=== PATIENT | male | born 1950 | race Caucasian/White ===

== ENCOUNTER 2016-09-16 08:16 | Day surgery (SDC) | payer OTHER, MEDICARE ==
[2016-09-15 14:34] VITALS: BMI 29.9
[2016-09-16 08:32] LABS: URINE APPEARANCE CLEAR; URINE BILIRUBIN NEGATIVE (NEGATIVE); URINE BLOOD NEGATIVE (NEGATIVE); URINE COLOR DKYELLOW; URINE GLUCOSE (UA) NEGATIVE (NEGATIVE); URINE KETONE NEGATIVE (NEGATIVE); URINE LEUK ESTERASE NEGATIVE (NEGATIVE); URINE NITRITE NEGATIVE (NEGATIVE); URINE PROTEIN NEGATIVE (NEGATIVE); URINE UROBILINOGEN NEGATIVE E.U./dl (0.2-1.0)
[2016-09-16 09:10] LABS: INR 1.19 (0.82-1.09); PROTHROMBIN TIME (PATIENT) 13.1 SEC (9.98-11.88)
[2016-09-16 09:13] LABS: ACTIVATED PTT 31.9 SECONDS (26.9-34.4)
[2016-09-16] MEDS ORDERED: ROPIVACAINE HCL 0.5% 30ML VIAL ONE (09:39)
[2016-09-16] MEDS ORDERED: MIDAZOLAM HCL 2 MG/2 ML SINGLE DOSE VIAL ONE ×3 (09:40→11:33)
--- NOTE | 2016-09-16 11:30 | HP ---
Satellite [facility] - Chief Complaint Chief Complaint: right shoulder pain - Past Medical History Allergies/Adverse Reactions: Allergies Allergy/AdvReac Type Severity Reaction Status Date / Time No Known Allergies Allergy Verified 09/16/16 09:05 - Current Medications Current Medications: Medication Instructions Recorded Digoxin [Lanoxin -] 0.125 mg PO DAILY 01/16/12 Warfarin Na [Coumadin -] 5 mg PO HS 01/16/12 Rosuvastatin Calcium [Crestor] 10 mg PO DAILY 08/23/12 Diltiazem HCl [Diltiazem 24Hr Cd] 180 mg PO HS 03/03/16 Apixaban [Eliquis] 5 mg PO BID 09/15/16 Hydrocodone/Acetaminophen 1 each PO Q6H #40 tablet MDD 4 09/16/16 [Hydrocodon-Acetaminoph 7.5-325] Satellite Physical Exam - Physical Examination Vital Signs: Vital Signs Period Temp Pulse Resp BP Sys/Palomares Pulse Ox Last 24 Hr 93 18 123/95 96 General Appearance: Well Nourished, Well Developed, Alert & Oriented x3 ENT: Clear Lung: Normal air movement Heart: Regular rate & rhythm Extremities: Other (right shoulder- +ttp, decr rom, + neer, + valdez, + empty can, nvi MRI + rct) Neurological: Intact, Alert, Oriented Satellite Impression/Plan - Impression/Plan Impression: right shoulder rct Operative Procedure: right shoulder arthroscopy with [id number] Date to be Performed: 09/16/16
[2016-09-16] MEDS ORDERED: ceFAZolin SODIUM 1 GM VIAL ONE (11:32)
[2016-09-16] MEDS ORDERED: ONDANSETRON 4 MG/2 ML VIAL ONE (11:32)
[2016-09-16] MEDS ORDERED: DEXAMETHASONE SOD PHOSPHATE 4 MG/1 ML VIAL ONE (11:32)
[2016-09-16] MEDS ORDERED: SODIUM CHLORIDE 0.9% P/F 10 ML VIAL IJ ONE (11:32)
[2016-09-16] MEDS ORDERED: KETOROLAC TROMETHAMINE 30 MG/1 ML VIAL ONE (11:32)
[2016-09-16] MEDS ORDERED: SUCCINYLCHOLINE CHLORIDE 200 MG/10 ML VIAL ONE (11:33)
[2016-09-16] MEDS ORDERED: ROCURONIUM BROMIDE 50 MG/5 ML VIAL ONE (11:33)
[2016-09-16] MEDS ORDERED: PROPOFOL 20 ML ONE (11:33)
[2016-09-16] MEDS ORDERED: ceFAZolin SODIUM 1 GM VIAL IVPB ONE ×2 (11:41→11:46)
--- NOTE | 2016-09-16 13:05 | OP ---
Operative Note - Note: Operative Date: 09/16/16 Pre-Operative Diagnosis: right shoulder RTC tear and subacromial impingement Operation: right shoulder arthroscopy, decompression, extensive debridement, RTC repair Implants: 2 x Arthrex Swivel lock anchors, fiber wire, fiber tape Surgeon: Luís Buchanan Support Team Member: Nishant Ramirez Anesthesiologist/PRODUCTION QUALITY MANAGER: Mark Holman Jr. Anesthesia: General, Local Estimated Blood Loss (mls): 25 Blood Volume Replaced (mls): 0 Fluid Volume Replaced (mls): 1,000 Operative Report Dictated: Yes
[2016-09-16] MEDS ORDERED: oxyCODONE HCL 5 MG TABLET PO PRN (14:07)
[2016-09-16] MEDS ORDERED: ONDANSETRON 4 MG/2 ML VIAL IVPUSH PRN (14:07)
[2016-09-16] MEDS ORDERED: LACTATED RINGERS SOLUTION 1,000 ML IV SCH (14:15)
--- NOTE | 2016-09-16 14:50 | OP ---
DATE OF OPERATION: 09/16/2016 PREOPERATIVE DIAGNOSES: Right shoulder subacromial impingement and rotator cuff tear. POSTOPERATIVE DIAGNOSES: Right shoulder subacromial impingement and rotator cuff tear. PROCEDURE: Right shoulder arthroscopy, subacromial decompression, and arthroscopic rotator cuff repair, extensive debridement. SURGEON: Sincere Shelton MD ASSISTANTS: JENIFER Croft; Mark Holman Jr., CRNA ANESTHESIA: Interscalene block. BLOOD LOSS: Minimal. BLOOD GIVEN: None. FLUID REPLACEMENT: Plasma-Lyte, 1000 mL. DRAINS: None. COMPLICATIONS: None. This patient is a 66-year-old male with a preoperative diagnosis of a significant full-thickness retracted right rotator cuff tear and subacromial impingement. After understanding the potential risks, complications, alternatives, and benefits of surgical versus nonsurgical treatment, the patient elected to undergo this procedure. Patient was brought to the operating room. Peripheral IV placed. IV sedation given. One gram of IV Ancef was given. A right interscalene block was performed. He was placed in the beach-chair position with ample padding throughout. The right upper extremity was prepped and draped in sterile fashion. Both the bony landmarks were marked out with a marking pen. The posterior portal was established. Diagnostic glenohumeral arthroscopy was performed. The patient was seen to have a frayed biceps tendon. About 35% of the thickness of the biceps tendon was frayed. The anterior labrum was frayed. There was a lot of intraarticular synovitis. Therefore, an anterior portal was established under direct visualization, a shaver introduced into the joint. The biceps tendon was debrided. The labrum was debrided. The synovectomy was performed. A probe was then introduced into the joint. The entire labrum was stable. There was no tear in need of repair. There was an obvious full-thickness rotator cuff tear. Probing the biceps, it looked good. Next, our attention turned to the subacromial space. There was a lot of inflammatory bursitis. A lateral portal was established under direct visualization. An extensive debridement was done. A soft tissue bursectomy performed with the Arthrex wand and then the shaver was used to remove the debris, revealing a moderate-sized subacromial spur. This was taken down with the 5.5-mm oval bur and fine tuned in reverse. There was plenty of space. The arm was put through a range of motion. There was no additional impingement. The patient had a large full-thickness rotator cuff tear. However, there was a large crescent shape that was attached anteriorly unfortunately which prevented retraction and it was easily mobilizable. I was able to grasp it, pull it down, and overall noted it to be quite good. The humeral head rotator cuff landing bed was prepared with a rasp and a shaver. Then, under direct visualization using the Bizily needle passer we put in 1 FiberTape anteriorly and 3 more FiberWires in the middle, the middle posterior, and the posterior aspect of the supraspinatus and the top portion of the infraspinatus tendon. It all came down quite nicely. The anterior 4 suture tails and the posterior 4 suture tails were each introduced into their own SwiveLock anchor and under direct visualization the SwiveLocks were put down into the proximal humerus. It all came down quite nicely. The rotator cuff completely covered the humeral head. It moved as a unit with the humerus. All instrumentation was removed. Excess saline removed. Arthroscopy portals were closed with 3-0 nylon suture. The area was then washed and dried, covered with Aquacel. He was extubated. He was stable throughout the case. He was put into a shoulder immobilizer and brought then out of the beach-chair position and brought to the ambulatory recovery room. SINCERE SHELTON M.D. [id number]
[2016-09-16 14:59] VITALS: TEMP 98.7
[2016-09-16 16:27] VITALS: BP 100/60; PULSE 96
--- NOTE | 2016-09-17 17:38 | PATH ---
Surgical Pathology Report Patient Name: LORI YODER [facility]. Rec. #: [id number] /Age/Gender: 1950 (Age: 66) / M Account: [id number] Location: [facility] SURGICAL Taken: 09/16/2016 Received: 09/16/2016 Reported: 09/17/2016 Physicians: Luís Buchanan M.D. Specimen(s) Received SHAVINGS RIGHT SHOULDER Clinical History Rotator cuff tear, right shoulder Final Diagnosis SOFT TISSUE, RIGHT SHOULDER, ARTHROSCOPIC SHAVINGS: SYNOVIUM AND FIBROCARTILAGE WITH MYXOHYALINE DEGENERATION. FRAGMENTS OF UNREMARKABLE BONE AND SKELETAL MUSCLE. Electronically Signed Shilo Benitez M.D. Gross Description Received in formalin, labeled "right shoulder shavings" is a 5.0 x 4.0 x 0.5 cm. aggregate of briones-yellow soft tissue fragments. A customer service representative portion is submitted in one cassette. 09/16/201609/16/2016
== END 2016-09-16 16:05 | disposition home or self-care (01) ==
LOC: JASU-SURG 08:16
PROVIDERS: ATTEND Orthopaedic Surgery
PROC: 0RBJ4ZZ Excision of Right Shoulder Joint, Percutaneous Endoscopic Approach (ICD-10-PCS; 2016-09-16)
PROC: 0RNJ4ZZ Release Right Shoulder Joint, Percutaneous Endoscopic Approach (ICD-10-PCS; principal; 2016-09-16 10:30)
PROC: 0LQ14ZZ Repair Right Shoulder Tendon, Percutaneous Endoscopic Approach (ICD-10-PCS; 2016-09-16 10:30)
DX: M75.41 Impingement syndrome of right shoulder (principal); M75.101 Unspecified rotator cuff tear or rupture of right shoulder, not specified as traumatic
CPT/HCPCS: 36415; 81003; 85610; 85730; 88304-TC; 94760

== ENCOUNTER 2020-04-16 10:25 | Inpatient (IN) | payer OTHER, MEDICARE ==
[2020-04-16 10:34] VITALS: BMI 23.4
--- NOTE | 2020-04-16 11:47 | PDOC ---
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 He was in his recliner last night and swatting a fly when he fell over forward and to the side hitting his head. Unclear LOC vs syncope. Following the fall he reported dizziness with room spinning sensation. This morning he reported his vertigo significantly worsened and was having difficulty walking. Reports mild WILLIS. Denies hx of vertigo. He denies chest pain, SOB, palp, abd pain, n/v, dysuria. He has been doing rehab since the stroke but hasnt fully recovered. PCP: Dr Glez GI: Dr Bey PMHx: as noted above ROS: as noted SHx: Denies tobacco use; no alcohol use; no rec drugs Allergies: NKDA ROS: GENERAL/CONSTITUTIONAL: No fever or chills. No weakness. HEAD, EYES, EARS, NOSE AND THROAT: No change in vision. No ear pain or discharge. No sore throat. CARDIOVASCULAR: No chest pain or shortness of breath RESPIRATORY: No cough, wheezing, or hemoptysis. GASTROINTESTINAL: No nausea, vomiting, diarrhea or constipation. GENITOURINARY: No dysuria, frequency, or change in urination. MUSCULOSKELETAL: No joint or muscle swelling or pain. No neck or back pain. SKIN: No rash NEUROLOGIC: +vertigo, headache, ?loss of consciousness ENDOCRINE: No increased thirst. No abnormal weight change HEMATOLOGIC/LYMPHATIC: No anemia, easy bleeding, or history of blood clots. ALLERGIC/IMMUNOLOGIC: No hives or skin allergy. PE: GENERAL: Awake, alert, and fully oriented, no acute distress HEAD: right frontal abrasion, normocephalic, right droop (stable and baseline) EYES: EOMI, sclera anicteric, conjunctiva clear, significant horizontal nystagmus on H test ENT: Auricles normal inspection, hearing grossly normal, nares patent, oropharynx clear without exudates. dry mucosa NECK: Normal ROM, no lymphadenopathy LUNGS: No increased work of breathing, symmetrical chest rise, clear to auscultation bilaterally, no wheezes, crackles or rhonchi HEART: Regular rate, ireegularly irregular rhythm, no murmur, peripheral pulses 2+ and equal bilaterally. ABDOMEN: Soft, nondistended, nontender. No guarding, no rebound. No masses. No CVAT MUSCULOSKELETAL: decreased ROM of right arm 2/2 stroke; decreased chronic ROM left arm due to rotator cuff injury NEUROLOGICAL: Cranial nerves II through XII grossly intact. dysarthria (baseline and unchanged), FTN and HTS limited by residual weakness on the right and normal on the left, no focal sensorimotor deficits SKIN: stage 3 sacral decub ulcer Past History - Medical History Allergies/Adverse Reactions: Allergies Allergy/AdvReac Type Severity Reaction Status Date / Time No Known Allergies Allergy Verified 11/04/19 10:58 Home Medications: Ambulatory Orders Digoxin [Lanoxin -] 0.125 mg PO DAILY 01/16/12 Apixaban [Eliquis] 5 mg PO BID 09/15/16 Atorvastatin Ca [Lipitor] 40 mg PO HS tablet 12/07/19 Diltiazem 180 mg PO HS 03/20/20 Linezolid 600 mg PO Q12H 03/20/20 Multivitamin 1 tab PO DAILY 03/20/20 Rosuvastatin Calcium 10 mg PO HS 03/20/20 Vitamin C - 1 tab PO DAILY 03/20/20 Vitamin D2 50,000 units PO WEEKLY 03/20/20 Zinc 220 mg PO DAILY 03/20/20 Bisacodyl [Bisacodyl -] 10 mg PO DAILY 04/10/20 Famotidine 20 mg PO DAILY 04/10/20 Metoprolol Succinate 12.5 mg PO DAILY 04/10/20 Polyethylene Glycol 3350 [Miralax 119 gm Btl -] 17 gm PO DAILY PRN 04/10/20 Sennosides [Senna -] 17.2 mg PO DAILY 04/10/20 Cholecalciferol (Vitamin D3) [Vitamin D-400] 400 unit PO BID 30 Days #1 tablet 04/12/20 Zinc Sulfate [Orazinc -] 220 mg GT DAILY 30 Days #7 capsule 04/12/20 Anemia: No Asthma: No Cancer: No Cardiac Disorders: Yes (AFIB) CVA: Yes COPD: No Dementia: No Diabetes: No GI Disorders: Yes (H/O COLON POLYPS,,H PYLORI) Disorders: No HTN: Yes Hypercholesterolemia: Yes Liver Disease: No Seizures: No Thyroid Disease: No - Surgical History Abdominal Surgery: No Appendectomy: No Cardiac Surgery: No Cholecystectomy: No Lung Surgery: No Neurologic Surgery: No Orthopedic Surgery: Yes (LEFT KNEE MEDIAL MENISCUS REAPIR 1973,rt knee 2004) - Immunization History Immunization Up to Date: No - Psycho-Social/Smoking History Smoking Status: No Smoking History: Never smoked Have you smoked in the past 12 months: No Number of Cigarettes Smoked Daily: 0 - Substance Abuse Hx (Audit-C & DAST Scrn) How often the patient has a drink containing alcohol: Never Score: In Men: 4 or > Positive; In Women: 3 or > Positive: 0 Screen Result (Pos requires Nsg. Audit-10AR): Negative In the last yr the pt used illegal drug/Rx for NonMed reason: No Score: Yes response is considered Positive: 0 Screen Result (Positive result requires Nsg. DAST-10): Negative *Physical Exam - Vital Signs Last Vital Signs Temp Pulse Resp BP Pulse Ox 97.3 F L 18 129/76 100 04/16/20 10:32 04/16/20 10:32 04/16/20 10:32 04/16/20 10:32 ED Treatment Course - LABORATORY CBC & Chemistry Diagram: 04/16/20 12:15 04/16/20 12:15 - RADIOLOGY Radiology Studies Ordered: Category Date Time Status HEAD CT WITHOUT CONTRAST [CT] Stat CT Scan 04/16/20 11:41 Ordered CXRPORT [CHEST X-RAY PORTABLE*] [RAD] Stat Radiology 04/16/20 11:44 Ordered Medical Decision Making - Medical Decision Making 04/16/20 13:28 70 y/o M with hx of hypertension, CHF, hyperlipidemia, atrial fibrillation on eliquis, COVID-19 c/b 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 VSS, AF. PE with significant horizontal nystagmus on H test and residual R sided weakness and dysarthria, also with stage 3 sacral ulcer -cbc, cmp, coags, card prof, ekg, cxr, ct head 04/16/20 14:[address] with chronic left infarct cxr with no acute pathology ekg with afib, no jan/d 04/16/20 14:05 FOBT pending will admit for tele obs for ?syncope with head trauma and vertigo with new anemia 04/16/20 16:[address] winkler Discharge - Discharge Information Problems reviewed: Yes Clinical Impression/Diagnosis: Anemia, Vertigo, Syncope Condition: Stable - Follow up/Referral - Patient Discharge Instructions - Post Discharge Activity
[2020-04-16 13:09] LABS: BASO % 0.3 % (0-2.0); EOS % 0.8 % (0-4.5); HEMATOCRIT 22.4 % (35.4-49); HEMOGLOBIN 7.3 GM/dL (11.7-16.9); LYMPH % 16.7 % (8-40); MCH 27.6 pg (25.7-33.7); MCHC 32.5 g/dl (32.0-35.9); MEAN PLT VOLUME 7.8 fl (7.5-11.1); MONO % 13.5 % (3.8-10.2); NEUT % 68.7 % (42.8-82.8); PLATELET COUNT 233 K/MM3 (134-434); RBC 2.63 M/mm3 (4.00-5.60); RDW 17.4 % (11.9-15.9); WHITE BLOOD COUNT 8.2 K/mm3 (4.0-10.0)
[2020-04-16 13:18] LABS: INR 1.75 (0.83-1.09); PROTHROMBIN TIME (PATIENT) 20.8 SEC (9.7-13.0)
[2020-04-16 13:21] LABS: ACTIVATED PTT 36.9 SECONDS (25.2-36.5)
[2020-04-16 13:44] LABS: ALBUMIN 3.4 g/dl (3.4-5.0); ALK PHOS 89 U/L (45-117); ANION GAP 9 MMOL/L (8-16); BILIRUBIN,TOTAL 0.3 mg/dL (0.2-1); BLOOD UREA NITROGEN 8.1 mg/dL (7-18); CALCIUM 8.6 mg/dL (8.5-10.1); CHLORIDE 108 mmol/L (98-107); CO2 23 mmol/L (21-32); CREATININE 0.6 mg/dL (0.55-1.3); GLUCOSE,RANDOM 117 mg/dL (74-106); MAGNESIUM 2.6 mg/dL (1.8-2.4); POTASSIUM 4.2 mmol/L (3.5-5.1); SGOT/AST 12 U/L (15-37); SGPT/ALT 18 U/L (13-61); SODIUM 140 mmol/L (136-145); TOT PROT 6.8 g/dl (6.4-8.2)
[2020-04-16 13:47] LABS: ANISOCYTOSIS 1+; MACROCYTOSIS 1+; PLATELET ESTIMATE NORMAL
[2020-04-16] MEDS ORDERED: MECLIZINE HCL 25 MG TABLET (FP) PO ONE (14:10)
--- NOTE | 2020-04-16 14:22 | PDOC ---
Documentation entered by Darlene Coleman SCRIBE, acting as scribe for Marko Allan MD. Marko Allan MD: This documentation has been prepared by the [place] oro Xhesika, SCRIBE, under my direction and personally reviewed by me in its entirety. I confirm that the documentation accurately reflects all work, treatment, procedures, and medical decision making performed by me. Attending Attestation - Resident Resident Name: HanselJoslynbrooke - ED Attending Attestation I have performed the following: I have examined & evaluated the patient, The case was reviewed & discussed with the resident, I agree w/resident's findings & plan, Exceptions are as noted - HPI HPI: 04/16/20 11:18 The patient is a 70 year old male, with a significant past medical history of HTN, HLD, CHF, hyperlipidemia, Afib on eliquis, H. pylori, and covid-19, PNA, who presents to the emergency department with headache and dizziness s/p fall yesterday. Pt states he was swatting a fly when he fell on to the side hitting his head. After the fall, pt endorsed room spinning dizziness. Pt states his dizziness was worse this morning associated with difficulty walking, prompting his arrival to the ED. Allergies: NKDA Primary Care Physician: Dr. Butt University Manager: Dr. Jones - Physicial Exam PE: 04/16/20 14:23 Vitals: Triage Vital signs reviewed General Appearance: No acute distress, well nourished well developed, Head: Abrasion to right forehead Eyes: Pupils equal reactive round, extraocular movement intact membranes moist, Neck: Supple; no Nucal rigidity Chest Wall: Nontender Cardiac: irregularly irregular Lungs: Clear to auscultation bilateral, good air movement bilaterally, Abdomen: Soft, non distended, normal bowel sounds, non tender to palpation Extremities: Full range of motion to all extremities, no cyanosis, clubbing, or edema Skin: Stage III sacral decubitus ulcer Neuro: Strength intact to all extremities, sensation intact to all extremities Psych: Normal mood, normal affect - Medical Decision Making 04/16/20 16:45 70 years old CVA on Eliquis status post fall poor recollection of story differential diagnosis includes mechanical fall over syncope Labs within normal limits head CT demonstrates no bleed Will observe overnight for management given fall head trauma on Eliquis and further evaluation of anemia Heart Score/ECG Review - ECG Impressions Comment:: 04/16/20 16:45 EKG performed at [address] fib no ST elevations or T wave inversions Interpreted by me Discharge - Discharge Information Problems reviewed: Yes Clinical Impression/Diagnosis: Vertigo Anemia Qualifiers: Anemia type: unspecified type Qualified Code(s): D64.9 - Anemia, unspecified Syncope Qualifiers: Syncope type: unspecified Qualified Code(s): R55 - Syncope and collapse Condition: Stable - Follow up/Referral - Patient Discharge Instructions - Post Discharge Activity
[2020-04-16] MEDS ORDERED: MECLIZINE HCL 25 MG TABLET (FP) ONE (15:12)
--- NOTE | 2020-04-16 16:25 | EKG ---
Test Reason : Blood Pressure : / mmHG Vent. Rate : 085 BPM Atrial Rate : 110 BPM P-R Int : 000 ms QRS Dur : 082 ms QT Int : 406 ms P-R-T Axes : 000 031 031 degrees QTc Int : 483 ms ATRIAL FIBRILLATION NONSPECIFIC ST ABNORMALITY PROLONGED QT ABNORMAL ECG WHEN COMPARED WITH ECG OF 12-NOV-2019 12:35, NO SIGNIFICANT CHANGE WAS FOUND Confirmed by MD MELARA MOYSES ([id number]) on 04/16/2020 4:24:52 PM Referred By: Confirmed By:ITZ MELARA MD
[2020-04-16] MEDS: D5-1/2NS+20 MEQ KCL - 20 MEQ/1,000 ML INFUS.BAG IV SCH (17:46)
[2020-04-16] MEDS: PANTOPRAZOLE SODIUM 80 MG in SODIUM CHLORIDE 100 ML IVPB SCH (18:43)
[2020-04-16] MEDS ORDERED: ATORVASTATIN CA 40 MG TABLET (FP) ONE (22:16)
[2020-04-16] MEDS: ATORVASTATIN CA 40 MG TABLET (FP) PO SCH (22:37)
[2020-04-17] MEDS: PANTOPRAZOLE SODIUM 80 MG in SODIUM CHLORIDE 100 ML IVPB SCH ×3 (04:02→21:46)
[2020-04-17 07:05] LABS: BASO % 0.3 % (0-2.0); EOS % 1.4 % (0-4.5); HEMATOCRIT 25.6 % (35.4-49); HEMOGLOBIN 8.4 GM/dL (11.7-16.9); LYMPH % 21.1 % (8-40); MCH 27.5 pg (25.7-33.7); MCHC 32.9 g/dl (32.0-35.9); MEAN CELL VOLUME 83.5 fl (80-96); MEAN PLT VOLUME 7.5 fl (7.5-11.1); MONO % 11.3 % (3.8-10.2); NEUT % 65.9 % (42.8-82.8); PLATELET COUNT 245 K/MM3 (134-434); RBC 3.06 M/mm3 (4.00-5.60); RDW 17.1 % (11.9-15.9); WHITE BLOOD COUNT 8.4 K/mm3 (4.0-10.0)
[2020-04-17 07:35] LABS: ALBUMIN 3.2 g/dl (3.4-5.0); ANION GAP 9 MMOL/L (8-16); BLOOD UREA NITROGEN 6.5 mg/dL (7-18); CALCIUM 8.5 mg/dL (8.5-10.1); CHLORIDE 110 mmol/L (98-107); CO2 23 mmol/L (21-32); GLUCOSE,RANDOM 101 mg/dL (74-106); MAGNESIUM 2.4 mg/dL (1.8-2.4); POTASSIUM 4.1 mmol/L (3.5-5.1); SODIUM 141 mmol/L (136-145)
[2020-04-17 07:48] LABS: ALK PHOS 87 U/L (45-117); BILIRUBIN,TOTAL 0.5 mg/dL (0.2-1); CREATININE 0.7 mg/dL (0.55-1.3); SGOT/AST 15 U/L (15-37); SGPT/ALT 18 U/L (13-61); TOT PROT 6.4 g/dl (6.4-8.2)
--- NOTE | 2020-04-17 09:22 | EKG ---
Test Reason : Blood Pressure : / mmHG Vent. Rate : 093 BPM Atrial Rate : 094 BPM P-R Int : 000 ms QRS Dur : 078 ms QT Int : 378 ms P-R-T Axes : 000 031 024 degrees QTc Int : 469 ms ATRIAL FIBRILLATION NONSPECIFIC ST ABNORMALITY ABNORMAL ECG Confirmed by MD KELTON, ITZ ([id number]) on 04/17/2020 9:21:40 AM Referred By: Confirmed By:ITZ MELARA MD
--- NOTE | 2020-04-17 09:50 | HP ---
Admitting History and Physical - Admission History of Present Illness: 1 year old male, with a significant past medical history of HTN, HLD, CHF, hyperlipidemia, Afib on eliquis, H. pylori, and covid-19, PNA, who presents to the emergency department with headache and dizziness s/p fall yesterday. Pt states he was swatting a fly when he fell on to the side hitting his head. After the fall, pt endorsed room spinning dizziness. Pt states his dizziness was worse this morning associated with difficulty walking, prompting his arrival to the ED. 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 Cardiovascular: Yes: AFIB, CHF, HTN - Smoking History Smoking history: Never smoked Have you smoked in the past 12 months: No Aproximately how many cigarettes per day: 0 - Alcohol/Substance Use Hx Alcohol Use: No - Social History ADL: Independent History of Recent Travel: Yes ([place] october 16) Home Medications - Allergies Allergies/Adverse Reactions: Allergies Allergy/AdvReac Type Severity Reaction Status Date / Time No Known Allergies Allergy Verified 11/04/19 10:58 - Home Medications Home Medications: Ambulatory Orders Apixaban [Eliquis] 5 mg PO BID 09/15/16 Atorvastatin Ca [Lipitor] 40 mg PO HS tablet 12/07/19 Multivitamin 1 tab PO DAILY 03/20/20 Vitamin C - 1 tab PO DAILY 03/20/20 Vitamin D2 50,000 units PO WEEKLY 03/20/20 Zinc 220 mg PO DAILY 03/20/20 Bisacodyl [Bisacodyl -] 10 mg PO DAILY 04/10/20 Famotidine 20 mg PO DAILY 04/10/20 Metoprolol Succinate 12.5 mg PO DAILY 04/10/20 Polyethylene Glycol 3350 [Miralax 119 gm Btl -] 17 gm PO DAILY PRN 04/10/20 Sennosides [Senna -] 17.2 mg PO DAILY 04/10/20 Cholecalciferol (Vitamin D3) [Vitamin D-400] 400 unit PO BID 30 Days #1 tablet 04/12/20 Zinc Sulfate [Orazinc -] 220 mg GT DAILY 30 Days #7 capsule 04/12/20 Review of Systems - Review of Systems Constitutional: reports: Weakness Cardiovascular: reports: No Symptoms Respiratory: reports: No Symptoms Gastrointestinal: reports: No Symptoms Neurological: reports: Syncope Physical Examination Vital Signs: Vital Signs Temperature 98.4 F 04/17/20 09:33 Pulse Rate 90 04/17/20 09:33 Respiratory Rate 18 04/17/20 08:00 Blood Pressure 112/58 L 04/17/20 09:33 O2 Sat by Pulse Oximetry (%) 100 04/17/20 09:33 Constitutional: Yes: Calm Cardiovascular: Yes: Pulse Irregular, S1, S2 Respiratory: Yes: Regular, CTA Bilaterally Gastrointestinal: Yes: Normal Bowel Sounds, Soft Edema: No Neurological: Yes: Alert, Oriented, Dysarthria, Facial Droop, Pre-Existing Deficit, Other Labs: CBC, BMP 04/17/20 06:26 04/17/20 06:26 Imaging - Results Cat Scan: Report Reviewed Problem List - Problems (1) Syncope Assessment/Plan: maybe due to anemia follow up labs tele cardio and neuro consult Code(s): R55 - SYNCOPE AND COLLAPSE Qualifiers: Syncope type: unspecified Qualified Code(s): R55 - Syncope and collapse (2) Anemia Assessment/Plan: r/o gi bleed gi consult hold eliquis prbc follow labs ppi Code(s): D64.9 - ANEMIA, UNSPECIFIED Qualifiers: Anemia type: unspecified type Qualified Code(s): D64.9 - Anemia, unspecifi ed (3) Atrial fibrillation Assessment/Plan: hold eliquis cardio Code(s): I48.91 - UNSPECIFIED ATRIAL FIBRILLATION (4) CVA (cerebral vascular accident) Assessment/Plan: hold ac cardio and neuro Code(s): I63.9 - CEREBRAL INFARCTION, UNSPECIFIED
--- NOTE | 2020-04-17 12:43 | CON.CARD ---
Consult Consult Specialty:: Cardiology Referred by:: Medicine Reason for Consultation:: syncope - History of Present Illness Chief Complaint: fall History of Present Illness: 70M h/o HTN, HLD, CHF, HLD, afib on eliquis, COVID-19 infection p/w dizziness, fall. Was turning to swat a fly when he fell on his side. He hit his head and then felt spinning of the room. Denies losing consciousness. no chest pain, palps, orthopnea, edema. 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 Cardio/Vascular: Yes: AFIB, CHF, HTN - Alcohol/Substance Use Hx Alcohol Use: No - Smoking History Smoking history: Never smoked Have you smoked in the past 12 months: No Aproximately how many cigarettes per day: 0 - Social History Usual Living Arrangement: With Spouse ADL: Independent History of Recent Travel: Yes ([place] october 16) Home Medications - Allergies Allergies/Adverse Reactions: Allergies Allergy/AdvReac Type Severity Reaction Status Date / Time No Known Allergies Allergy Verified 11/04/19 10:58 - Home Medications Home Medications: Ambulatory Orders Apixaban [Eliquis] 5 mg PO BID 09/15/16 Atorvastatin Ca [Lipitor] 40 mg PO HS tablet 12/07/19 Multivitamin 1 tab PO DAILY 03/20/20 Vitamin C - 1 tab PO DAILY 03/20/20 Vitamin D2 50,000 units PO WEEKLY 03/20/20 Zinc 220 mg PO DAILY 03/20/20 Bisacodyl [Bisacodyl -] 10 mg PO DAILY 04/10/20 Famotidine 20 mg PO DAILY 04/10/20 Metoprolol Succinate 12.5 mg PO DAILY 04/10/20 Polyethylene Glycol 3350 [Miralax 119 gm Btl -] 17 gm PO DAILY PRN 04/10/20 Sennosides [Senna -] 17.2 mg PO DAILY 04/10/20 Cholecalciferol (Vitamin D3) [Vitamin D-400] 400 unit PO BID 30 Days #1 tablet 04/12/20 Zinc Sulfate [Orazinc -] 220 mg GT DAILY 30 Days #7 capsule 04/12/20 Family Medical History Family History: Unremarkable Review of Systems - Review of Systems Constitutional: reports: No Symptoms Eyes: reports: No Symptoms HENT: reports: No Symptoms Neck: reports: No Symptoms Cardiovascular: reports: No Symptoms Respiratory: reports: No Symptoms Gastrointestinal: reports: No Symptoms Genitourinary: reports: No Symptoms Musculoskeletal: reports: No Symptoms Integumentary: reports: No Symptoms Neurological: reports: No Symptoms Endocrine: reports: No Symptoms Hematology/Lymphatic: reports: No Symptoms Psychiatric: reports: No Symptoms Vital Signs: Vital Signs Temperature 98.4 F 04/17/20 09:33 Pulse Rate 90 04/17/20 09:33 Respiratory Rate 18 04/17/20 08:00 Blood Pressure 112/58 L 04/17/20 09:33 O2 Sat by Pulse Oximetry (%) 100 04/17/20 09:33 Constitutional: Yes: No Distress, Calm Eyes: Yes: Conjunctiva Clear, EOM Intact HENT: Yes: Atraumatic, Normocephalic Neck: Yes: Supple, Trachea Midline Respiratory: Yes: Regular, CTA Bilaterally Gastrointestinal: Yes: Normal Bowel Sounds, Soft Cardiovascular: Yes: Regular Rate and Rhythm JVD: No Heart Sounds: Yes: S1, S2 Musculoskeletal: No: Back Pain Extremities: No: Cold Edema: No Integumentary: No: Jaundice Neurological: Yes: Alert, Oriented Psychiatric: No: Agitated - Other Data Labs, Other Data: CBC, BMP 04/17/20 06:26 04/17/20 06:26 INR, PTT INR 1.75 (0.83-1.09) H 04/16/20 12:15 Troponin, BNP 04/16/20 04/16/20 04/17/20 12:15 14:15 06:26 Troponin I < 0.02 < 0.02 < 0.02 Troponin, BNP 04/16/20 04/16/20 04/17/20 12:15 14:15 06:26 Troponin I < 0.02 < 0.02 < 0.02 Assessment/Plan EKG: afib, no ischemic changes CXR: no acute process 70M h/o HTN, HLD, CHF, HLD, afib on eliquis, COVID-19 infection p/w dizziness, fall fall, dizziness - denies loss of consciousness - dizziness history more likely vertigo - trop neg x 3, EKG no ischemic changes, unlikely acs - monitoring on tele - check echo anemia - eliquis held - GI consulted - manage per primary afib - holding eliquis - cont metoprolol CVA - holding AC as above - cont statin CHF - echo as above - appears euvolemic
[2020-04-17] MEDS ORDERED: PT OWN MED DRAWER 7, Y5N ONE (12:45)
[2020-04-17] MEDS: metoPROLOL SUCCINATE 25 MG TAB.SR.24H (FP) PO SCH (13:06)
--- NOTE | 2020-04-17 15:23 | CON.GI ---
Consult Consult Specialty:: GI Referred by:: Dr Chung Reason for Consultation:: Progressive anemia - History of Present Illness Chief Complaint: Progressive anemia History of Present Illness: 70M, Afib, severe COVID November of this year with prolonged intubation, embolic CVA, and development of large sacral decubitus. During hospitalization Hgb dropped to about 10 from his normal of 14, but still with an MCV of 88-89. He is now admitted with a Hgb 7-8, MCV 83-85, after getting dizzy. He has been on Eliquis 5 mg bid. He has not seen any gross GI bleeding. He provided 3 stool samples to our office last week and they were negative for occult blood by guaiac testing. CBC WBC 8.4 K/mm3 (4.0-10.0) 04/17/20 06:26 RBC 3.06 M/mm3 (4.00-5.60) L 04/17/20 06:26 Hgb 8.4 GM/dL (11.7-16.9) L 04/17/20 06:26 Hct 25.6 % (35.4-49) L 04/17/20 06:26 MCV 83.5 fl (80-96) 04/17/20 06:26 MCH 27.5 pg (25.7-33.7) 04/17/20 06:26 MCHC 32.9 g/dl (32.0-35.9) 04/17/20 06:26 RDW 17.1 % (11.9-15.9) H 04/17/20 06:26 Plt Count 245 K/MM3 (134-434) 04/17/20 06:26 MPV 7.5 fl (7.5-11.1) 04/17/20 06:26 Absolute Neuts (auto) 5.5 K/mm3 (1.5-8.0) 04/17/20 06:26 Neutrophils % 65.9 % (42.8-82.8) 04/17/20 06:26 Neutrophils % (Manual) 72.0 % (42.8-82.8) 04/16/20 12:15 Band Neutrophils % 0.0 % 04/16/20 12:15 Lymphocytes % 21.1 % (8-40) D 04/17/20 06:26 Lymphocytes % (Manual) 20.0 % (8-40) D 04/16/20 12:15 Monocytes % 11.3 % (3.8-10.2) H 04/17/20 06:26 Monocytes % (Manual) 8 % (3.8-10.2) D 04/16/20 12:15 Eosinophils % 1.4 % (0-4.5) 04/17/20 06:26 Eosinophils % (Manual) 0.0 % (0-4.5) 04/16/20 12:15 Basophils % 0.3 % (0-2.0) 04/17/20 06:26 Basophils % (Manual) 0.0 % (0-2.0) 04/16/20 12:15 Myelocytes % (Man) 0 % (0-2) 04/16/20 12:15 Promyelocytes % (Man) 0 % (0-2) 04/16/20 12:15 Blast Cells % (Manual) 0 % (0-0) 04/16/20 12:15 Nucleated RBC % 0 % (0-0) 04/17/20 06:26 Metamyelocytes 0 % (0-2) D 04/16/20 12:15 Hypochromia 0 04/16/20 12:15 Platelet Estimate Normal 04/16/20 12:15 Polychromasia 2+ 04/16/20 12:15 Poikilocytosis 0 04/16/20 12:15 Anisocytosis 1+ 04/16/20 12:15 Microcytosis 0 04/16/20 12:15 Macrocytosis 1+ 04/16/20 12:15 - History Source History Provided By: Patient, Medical Record Limitations to Obtaining History: No Limitations - Past Medical History 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 Cardio/Vascular: Yes: AFIB, CHF, HTN - Alcohol/Substance Use Hx Alcohol Use: No - Smoking History Smoking history: Never smoked Have you smoked in the past 12 months: No Aproximately how many cigarettes per day: 0 - Social History Usual Living Arrangement: With Spouse ADL: Independent History of Recent Travel: Yes ([place] october 16) Home Medications - Allergies Allergies/Adverse Reactions: Allergies Allergy/AdvReac Type Severity Reaction Status Date / Time No Known Allergies Allergy Verified 11/04/19 10:58 - Home Medications Home Medications: Ambulatory Orders Apixaban [Eliquis] 5 mg PO BID 09/15/16 Atorvastatin Ca [Lipitor] 40 mg PO HS tablet 12/07/19 Multivitamin 1 tab PO DAILY 03/20/20 Vitamin C - 1 tab PO DAILY 03/20/20 Vitamin D2 50,000 units PO WEEKLY 03/20/20 Zinc 220 mg PO DAILY 03/20/20 Bisacodyl [Bisacodyl -] 10 mg PO DAILY 04/10/20 Famotidine 20 mg PO DAILY 04/10/20 Metoprolol Succinate 12.5 mg PO DAILY 04/10/20 Polyethylene Glycol 3350 [Miralax 119 gm Btl -] 17 gm PO DAILY PRN 04/10/20 Sennosides [Senna -] 17.2 mg PO DAILY 04/10/20 Cholecalciferol (Vitamin D3) [Vitamin D-400] 400 unit PO BID 30 Days #1 tablet 04/12/20 Zinc Sulfate [Orazinc -] 220 mg GT DAILY 30 Days #7 capsule 04/12/20 Family Medical History Family History: Unremarkable Physical Exam-GI Vital Signs: Vital Signs Temperature 98.4 F 04/17/20 09:33 Pulse Rate 90 04/17/20 09:33 Respiratory Rate 18 04/17/20 08:00 Blood Pressure 112/58 L 04/17/20 09:33 O2 Sat by Pulse Oximetry (%) 100 04/17/20 09:33 ...Auscultate: Yes: Normoactive Bowel Sounds ...Palpate: No: Firm/Rigid, Guarding, Hepatomegaly, Mass, Pulsatile Mass, Soft, Splenomegaly, Tenderness, Tenderness, Epigastium, Tenderness, Rebound, Other ...Rectal Exam: Yes: WNL (Stool soft, brown, not grossly bloody) Labs: CBC, BMP 04/17/20 06:26 04/17/20 06:26 INR, PTT INR 1.75 (0.83-1.09) H 04/16/20 12:15 Problem List - Problems (1) Anemia Code(s): D64.9 - ANEMIA, UNSPECIFIED Qualifiers: Anemia type: unspecified type Qualified Code(s): D64.9 - Anemia, uns pecified Assessment/Plan Progressive anemia. It is now 4 months since his hospitalization and it is hard to ignore his progressive anemia. Despite the 3 negative stool guaiacs there remains a high suspicion for a GI bleeding source. Will schedule patient for EGD and colonoscopy. Consent discussion held with patient and (by telephone) with patient's . I will put him back on Eliquis for 2 reasons: 1) he had an embolic CVA in November when Eliquis was held, and 2) the chance of finding a bleeding site will be greater when he is on anticoagulation. I did explain to the patient and his that if I see a bleeding site on Eliquis he will likely need another procedure off anticoagulation to treat it, as most procedures to treat the bleeding (clipping, cautery) will run the risk of causing more bleeding if he is anticoagulated at the time. Procedures booked for 04/19/20 at 8 a.m.
--- NOTE | 2020-04-17 15:39 | PN ---
Progress Note (short form) - Note Progress Note: Patient known from Wound clinic : Un-staged Sacral decubitus Patient admitted for a fall from possible dizziness/Anaemia/?Bleeding Laboratory Tests 04/17/20 04/17/20 06:26 06:26 WBC 8.4 Hgb 8.4 L Hct 25.6 L RDW 17.1 H Chloride 110 H BUN 6.5 L Albumin 3.2 L FU : Sacral Decubitus Un-stage Decubitus Wound responding to Last week cauterization Evaluation /Measurements 6.3x3x 0.0 Decubitus clean, no bleeding, no odor Treatment : Light Cauterization with Silver Ag No3 Recommend : Dry Non Adherent dressing No Ointmants Do not Moisten , leave is dry Relief Pressure
--- NOTE | 2020-04-17 16:31 | PN ---
Progress Note (short form) - Note Progress Note: PULMONARY CONSULTATION DICTATED 04/17/20 IMP H/O RESPIRATORY FAILURE S/P COVID PNEUMONIA H/O CVA S/P MECHANICAL FALL DIZZINESS CHF AFIB HTN HLD ANEMIA PLAN O2 NEEDED GI ,NEURO W/U AC MONITOR LYTES,H+H DR GROVER Problem List - Problems (1) Syncope Code(s): R55 - SYNCOPE AND COLLAPSE Qualifiers: Syncope type: unspecified Qualified Code(s): R55 - Syncope and collapse (2) Vertigo Code(s): R42 - DIZZINESS AND GIDDINESS (3) Afib Code(s): I48.91 - UNSPECIFIED ATRIAL FIBRILLATION (4) Atrial fibrillation Code(s): I48.91 - UNSPECIFIED ATRIAL FIBRILLATION (5) CVA (cerebral vascular accident) Code(s): I63.9 - CEREBRAL INFARCTION, UNSPECIFIED (6) Hyperlipidemia Code(s): E78.5 - HYPERLIPIDEMIA, UNSPECIFIED (7) Hypertension Code(s): I10 - ESSENTIAL (PRIMARY) HYPERTENSION
[2020-04-17] MEDS: D5-1/2NS+20 MEQ KCL - 20 MEQ/1,000 ML INFUS.BAG IV SCH (17:28)
--- NOTE | 2020-04-17 17:49 | CON.NEURO ---
Consult Consult Specialty:: [facility] Referred by:: PCP Reason for Consultation:: Weakness - History of Present Illness History of Present Illness: 70 year sold man with PMH CAD OA CVA COVID -19 CVA Patient was in the hospital in October when he had had CVA I attended to him. 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 Cardio/Vascular: Yes: AFIB, CHF, HTN - Alcohol/Substance Use Hx Alcohol Use: No - Smoking History Smoking history: Never smoked Have you smoked in the past 12 months: No Aproximately how many cigarettes per day: 0 - Social History Usual Living Arrangement: With Spouse ADL: Independent History of Recent Travel: Yes ([place] october 16) Home Medications - Allergies Allergies/Adverse Reactions: Allergies Allergy/AdvReac Type Severity Reaction Status Date / Time No Known Allergies Allergy Verified 11/04/19 10:58 - Home Medications Home Medications: Ambulatory Orders Apixaban [Eliquis] 5 mg PO BID 09/15/16 Atorvastatin Ca [Lipitor] 40 mg PO HS tablet 12/07/19 Multivitamin 1 tab PO DAILY 03/20/20 Vitamin C - 1 tab PO DAILY 03/20/20 Vitamin D2 50,000 units PO WEEKLY 03/20/20 Zinc 220 mg PO DAILY 03/20/20 Bisacodyl [Bisacodyl -] 10 mg PO DAILY 04/10/20 Famotidine 20 mg PO DAILY 04/10/20 Metoprolol Succinate 12.5 mg PO DAILY 04/10/20 Polyethylene Glycol 3350 [Miralax 119 gm Btl -] 17 gm PO DAILY PRN 04/10/20 Sennosides [Senna -] 17.2 mg PO DAILY 04/10/20 Cholecalciferol (Vitamin D3) [Vitamin D-400] 400 unit PO BID 30 Days #1 tablet 04/12/20 Zinc Sulfate [Orazinc -] 220 mg GT DAILY 30 Days #7 capsule 04/12/20 Family Medical History Family History: Unremarkable Review of Systems - Review of Systems Constitutional: reports: No Symptoms Eyes: reports: No Symptoms HENT: reports: No Symptoms Neurological: reports: No Symptoms, Dizziness, Headache, Incoordination Physical Exam-Neuro Vital Signs: Vital Signs Temperature 98.1 F 04/17/20 15:20 Pulse Rate 92 H 04/17/20 15:20 Respiratory Rate 20 04/17/20 15:20 Blood Pressure 118/62 04/17/20 15:20 O2 Sat by Pulse Oximetry (%) 100 04/17/20 09:33 Constitutional: Yes: Well Nourished Neck: Yes: WNL Cardiovascular: Yes: WNL Labs: CBC, BMP 04/17/20 06:26 04/17/20 06:26 INR, PTT INR 1.75 (0.83-1.09) H 04/16/20 12:15 - Neuro Exam Level Of Consciousness: Yes: Oriented to Person, Oriented to Place, Oriented to Time Eyes: Yes: PERRLA Speech: WNL Dominant Hand: Right Cranial Nerves II-XII Intact: Yes Gag: Present DTR's: 1+ Left Bicep, 1+ Right Bicep, 1+ Left Tricep, 1+ Right Tricep Response to light touch: Normal Response to pain prick: Normal Response to temperature: Normal Motor Strength: 3/5: Left Arm, Right Arm, Left Leg, Right Leg Gait: Deferred Imaging - Results Cat Scan: Image Reviewed Problem List - Problems (1) Syncope Code(s): R55 - SYNCOPE AND COLLAPSE Qualifiers: Syncope type: unspecified Qualified Code(s): R55 - Syncope and collapse (2) Vertigo Code(s): R42 - DIZZINESS AND GIDDINESS (3) Atrial fibrillation Code(s): I48.91 - UNSPECIFIED ATRIAL FIBRILLATION Assessment/Plan 1. Fall precautions 2. MRI brain no Elio 3. Elliquis the same 4. Homocysteine Makayla Carnes Md
[2020-04-17] MEDS: APIXABAN 5 MG TABLET PO SCH (21:46)
[2020-04-17] MEDS: ATORVASTATIN CA 40 MG TABLET (FP) PO SCH (21:46)
[2020-04-18] MEDS: D5-1/2NS+20 MEQ KCL - 20 MEQ/1,000 ML INFUS.BAG IV SCH ×3 (06:18→22:26)
[2020-04-18 06:46] LABS: BASO % 0.3 % (0-2.0); EOS % 2.8 % (0-4.5); HEMATOCRIT 31.1 % (35.4-49); HEMOGLOBIN 10.1 GM/dL (11.7-16.9); LYMPH % 17.8 % (8-40); MCH 27.5 pg (25.7-33.7); MCHC 32.6 g/dl (32.0-35.9); MEAN CELL VOLUME 84.4 fl (80-96); MEAN PLT VOLUME 7.6 fl (7.5-11.1); MONO % 13.4 % (3.8-10.2); NEUT % 65.7 % (42.8-82.8); PLATELET COUNT 286 K/MM3 (134-434); RBC 3.69 M/mm3 (4.00-5.60); RDW 17.7 % (11.9-15.9); WHITE BLOOD COUNT 9.2 K/mm3 (4.0-10.0)
--- NOTE | 2020-04-18 06:46 | CONS ---
PULMONARY CONSULTATION DATE OF CONSULTATION: 04/17/2020 REFERRING PHYSICIAN: Hossein Chung MD Patient is a 70-year-old white male known to me from previous hospitalization with past medical history of COVID-19 pneumonia and pneumonitis in November 2019 complicated by respiratory failure; history of CVA in November 2019; hypertension; hyperlipidemia; congestive heart failure; atrial fibrillation maintained on Eliquis; Helicobacter pylori, admitted to [facility] with complaint of headache and dizziness, status post fall the day prior to admission. Patient states he was in a recliner chair and was swatting for a fly when he fell off the chair, hitting the side of his head. Denied any loss of consciousness. Denied any chest pains, nausea, vomiting, and diaphoresis. After the fall, he complained of the room spinning and dizziness. He states his dizziness got worse in the morning associated with difficulty walking and so, he presented to the emergency room. Patient underwent a CT scan of the in the ER, which revealed no evidence of acute CVA or intracranial hemorrhage. There was a large area of low-attenuation density in the left frontoparietal lobe consistent with a recent stroke/CVA in November. Patient was evaluated by cardiology consultation as well as GI consultation secondary to anemia. Patient denies any shortness of breath. Denies any cough. Denies hemoptysis. He states that since his respiratory failure he has not had any significant respiratory symptoms. PAST MEDICAL HISTORY: Again includes respiratory failure secondary to COVID-19 pneumonitis in November 2019, CVA in November 2019, hypertension, hyperlipidemia, H pylori, CHF, and atrial fibrillation maintained on Eliquis. REVIEW OF SYSTEMS: No chest pain. No palpitations. No headache. No visual disturbances. Positive dizziness. No abdominal pain. No lower extremity edema. CURRENT MEDICATIONS: Include Eliquis 5 mg b.i.d., Toprol, Lipitor, pantoprazole, and Marisela Ciel. PHYSICAL EXAMINATION: General: Patient is a well-developed, well-nourished male, awake, alert, currently in no acute distress. Vital Signs: He is currently afebrile. Blood pressure is 121/87. Respiratory rate is 22. O2 saturation is 97% on room air. HEENT: Normocephalic, atraumatic. Neck: Supple without any adenopathy. Heart: Irregular, irregular. S1, S2. Chest: Clear. Abdomen: Soft. Bowel sounds are positive. Extremities: No cyanosis or edema. LABORATORY DATA: Initial WBC was 8.2, hemoglobin 7.3, hematocrit 22.4. Patient is status post transfusion. His WBC is 8.4, hemoglobin 8.4, hematocrit 25.6. Chemistries: BUN 6, creatinine 0.7. Chest x-ray: No acute infiltrates and/or effusions. IMPRESSION: 1. History of respiratory failure secondary to COVID-19 pneumonia. 2. History of cerebrovascular accident, November 2019. 3. Status post mechanical fall. 4. Dizziness, likely secondary to fall. 5. Congestive heart failure. 6. Atrial fibrillation on anticoagulation. 7. Hypertension. 8. Hyperlipidemia. 9. Anemia. PLAN: Supplemental O2 as needed. GI and Neurology workup. Anticoagulation. Monitor electrolytes, hemoglobin and hematocrit. if there are no pulmonary contraindications. EGD and colonoscopy. BESSY GROVER M.D. [id number]
[2020-04-18 07:21] LABS: ALBUMIN 3.2 g/dl (3.4-5.0); BLOOD UREA NITROGEN 5.9 mg/dL (7-18); CALCIUM 8.3 mg/dL (8.5-10.1); CREATININE 0.7 mg/dL (0.55-1.3); POTASSIUM 4.2 mmol/L (3.5-5.1); TOT PROT 6.2 g/dl (6.4-8.2)
--- NOTE | 2020-04-18 07:49 | PN ---
Progress Note, Physician History of Present Illness: pulmonary alert,comfortable,-c/o sob,-cp,less dizzy - Current Medication List Current Medications: Active Medications Apixaban (Eliquis -) 5 mg PO BID [facility] Last Admin: 04/17/20 21:46 Dose: 5 mg Documented by: Atorvastatin Calcium (Lipitor -) 40 mg PO HS [facility] Last Admin: 04/17/20 21:46 Dose: 40 mg Documented by: Potassium Chloride/Dextrose/Sod Cl (D5-1/2ns+20 Meq Kcl -) 20 meq in 1,000 mls @ 75 mls/hr IV ASDIR [facility] Last Admin: 04/18/20 06:18 Dose: 75 mls/hr Documented by: Pantoprazole Sodium 80 mg/ (Sodium Chloride) 100 mls @ 10 mls/hr IVPB Q10H [facility] Stop: 04/19/20 16:41 Last Admin: 04/17/20 21:46 Dose: 10 mls/hr Documented by: Metoprolol Succinate (Toprol Xl -) 12.5 mg PO DAILY [facility] Last Admin: 04/17/20 13:06 Dose: 12.5 mg Documented by: Polyethylene Glycol/Electrolytes (Golytely Solution -) 2,000 ml PO ONCE ONE Stop: 04/18/20 14:01 Polyethylene Glycol/Electrolytes (Golytely Solution -) 2,000 ml PO ONCE ONE Stop: 04/18/20 20:01 - Objective Vital Signs: Vital Signs Temperature 97.9 F 04/18/20 05:32 Pulse Rate 89 04/18/20 05:32 Respiratory Rate 20 04/18/20 05:32 Blood Pressure 96/92 04/18/20 05:32 O2 Sat by Pulse Oximetry (%) 97 04/17/20 21:42 Constitutional: Yes: Well Nourished, Calm Eyes: Yes: WNL HENT: Yes: WNL Neck: Yes: WNL Cardiovascular: Yes: Pulse Irregular, S1, S2 Respiratory: Yes: CTA Bilaterally Gastrointestinal: Yes: Normal Bowel Sounds, Soft Extremities: Yes: WNL Edema: No Labs: CBC, BMP 04/18/20 05:57 INR, PTT INR 1.75 (0.83-1.09) H 04/16/20 12:15 Problem List - Problems (1) Syncope Code(s): R55 - SYNCOPE AND COLLAPSE Qualifiers: Syncope type: unspecified Qualified Code(s): R55 - Syncope and collapse (2) Vertigo Code(s): R42 - DIZZINESS AND GIDDINESS (3) Afib Code(s): I48.91 - UNSPECIFIED ATRIAL FIBRILLATION (4) Atrial fibrillation Code(s): I48.91 - UNSPECIFIED ATRIAL FIBRILLATION (5) CVA (cerebral vascular accident) Code(s): I63.9 - CEREBRAL INFARCTION, UNSPECIFIED (6) Hyperlipidemia Code(s): E78.5 - HYPERLIPIDEMIA, UNSPECIFIED (7) Hypertension Code(s): I10 - ESSENTIAL (PRIMARY) HYPERTENSION Assessment/Plan IMP H/O RESPIRATORY FAILURE S/P COVID PNEUMONIA H/O CVA S/P MECHANICAL FALL DIZZINESS CHF AFIB HTN HLD ANEMIA PLAN O2 NEEDED GI ,NEURO W/U AC MONITOR LYTES,H+H DR GROVER Problem List - Problems (1) Syncope Code(s): R55 - SYNCOPE AND COLLAPSE Qualifiers: Syncope type: unspecified Qualified Code(s): R55 - Syncope and collapse (2) Vertigo Code(s): R42 - DIZZINESS AND GIDDINESS (3) Afib Code(s): I48.91 - UNSPECIFIED ATRIAL FIBRILLATION (4) Atrial fibrillation Code(s): I48.91 - UNSPECIFIED ATRIAL FIBRILLATION (5) CVA (cerebral vascular accident) Code(s): I63.9 - CEREBRAL INFARCTION, UNSPECIFIED (6) Hyperlipidemia Code(s): E78.5 - HYPERLIPIDEMIA, UNSPECIFIED (7) Hypertension Code(s): I10 - ESSENTIAL (PRIMARY) HYPERTENSION
--- NOTE | 2020-04-18 08:02 | PN ---
Progress Note, Physician - Current Medication List Current Medications: Active Medications Apixaban (Eliquis -) 5 mg PO BID [facility] Last Admin: 04/17/20 21:46 Dose: 5 mg Documented by: Atorvastatin Calcium (Lipitor -) 40 mg PO HS [facility] Last Admin: 04/17/20 21:46 Dose: 40 mg Documented by: Potassium Chloride/Dextrose/Sod Cl (D5-1/2ns+20 Meq Kcl -) 20 meq in 1,000 mls @ 75 mls/hr IV ASDIR [facility] Last Admin: 04/18/20 06:18 Dose: 75 mls/hr Documented by: Pantoprazole Sodium 80 mg/ (Sodium Chloride) 100 mls @ 10 mls/hr IVPB Q10H [facility] Stop: 04/19/20 16:41 Last Admin: 04/17/20 21:46 Dose: 10 mls/hr Documented by: Metoprolol Succinate (Toprol Xl -) 12.5 mg PO DAILY [facility] Last Admin: 04/17/20 13:06 Dose: 12.5 mg Documented by: Polyethylene Glycol/Electrolytes (Golytely Solution -) 2,000 ml PO ONCE ONE Stop: 04/18/20 14:01 Polyethylene Glycol/Electrolytes (Golytely Solution -) 2,000 ml PO ONCE ONE Stop: 04/18/20 20:01 - Objective Vital Signs: Vital Signs Temperature 97.9 F 04/18/20 05:32 Pulse Rate 89 04/18/20 05:32 Respiratory Rate 20 04/18/20 05:32 Blood Pressure 96/92 04/18/20 05:32 O2 Sat by Pulse Oximetry (%) 97 04/17/20 21:42 Cardiovascular: Yes: S1, S2 Respiratory: Yes: Regular, CTA Bilaterally Gastrointestinal: Yes: Normal Bowel Sounds, Soft Labs: CBC, BMP 04/18/20 05:57 04/18/20 05:57 INR, PTT INR 1.75 (0.83-1.09) H 04/16/20 12:15 Problem List - Problems (1) Syncope Assessment/Plan: maybe due to anemia follow up labs tele cardio and neuro consult Code(s): R55 - SYNCOPE AND COLLAPSE Qualifiers: Syncope type: unspecified Qualified Code(s): R55 - Syncope and collapse (2) Anemia Assessment/Plan: r/o gi bleed gi consult appreciated--for endoscopy on eliquis prbc follow labs ppi Code(s): D64.9 - ANEMIA, UNSPECIFIED Qualifiers: Anemia type: unspecified type Qualified Code(s): D64.9 - Anemia, unspecified (3) Atrial fibrillation Assessment/Plan: on eliquis cardio Code(s): I48.91 - UNSPECIFIED ATRIAL FIBRILLATION (4) CVA (cerebral vascular accident) Assessment/Plan: on cardio and neuro Code(s): I63.9 - CEREBRAL INFARCTION, UNSPECIFIED
[2020-04-18] MEDS: metoPROLOL SUCCINATE 25 MG TAB.SR.24H (FP) PO SCH (10:09)
[2020-04-18] MEDS: PANTOPRAZOLE SODIUM 80 MG in SODIUM CHLORIDE 100 ML IVPB SCH ×2 (10:10→18:05)
[2020-04-18] MEDS: APIXABAN 5 MG TABLET PO SCH ×2 (10:10→22:01)
--- NOTE | 2020-04-18 12:28 | PN ---
Progress Note, Physician History of Present Illness: Doing cheri timothy e No new events overnight Await [facility] MRI On Tele - Current Medication List Current Medications: Active Medications Apixaban (Eliquis -) 5 mg PO BID [facility] Last Admin: 04/18/20 10:10 Dose: 5 mg Documented by: Atorvastatin Calcium (Lipitor -) 40 mg PO HS [facility] Last Admin: 04/17/20 21:46 Dose: 40 mg Documented by: Potassium Chloride/Dextrose/Sod Cl (D5-1/2ns+20 Meq Kcl -) 20 meq in 1,000 mls @ 75 mls/hr IV ASDIR [facility] Last Admin: 04/18/20 06:18 Dose: 75 mls/hr Documented by: Pantoprazole Sodium 80 mg/ (Sodium Chloride) 100 mls @ 10 mls/hr IVPB Q10H [facility] Stop: 04/19/20 16:41 Last Admin: 04/18/20 10:10 Dose: 10 mls/hr Documented by: Metoprolol Succinate (Toprol Xl -) 12.5 mg PO DAILY [facility] Last Admin: 04/18/20 10:09 Dose: 12.5 mg Documented by: Polyethylene Glycol/Electrolytes (Golytely Solution -) 2,000 ml PO ONCE ONE Stop: 04/18/20 14:01 Polyethylene Glycol/Electrolytes (Golytely Solution -) 2,000 ml PO ONCE ONE Stop: 04/18/20 20:01 - Objective Vital Signs: Vital Signs Temperature 98.3 F 04/18/20 10:00 Pulse Rate 94 H 04/18/20 10:00 Respiratory Rate 22 H 04/18/20 10:00 Blood Pressure 107/70 04/18/20 10:00 O2 Sat by Pulse Oximetry (%) 98 04/18/20 10:00 Constitutional: Yes: Well Nourished Eyes: Yes: WNL Neurological: Yes: Alert, Oriented, Babinski positive, Cran Nerves II-XII Intact ...Motor Strength: WNL Labs: CBC, BMP 04/18/20 05:57 04/18/20 05:57 INR, PTT INR 1.75 (0.83-1.09) H 04/16/20 12:15 Problem List - Problems (1) Syncope Code(s): R55 - SYNCOPE AND COLLAPSE Qualifiers: Syncope type: unspecified Qualified Code(s): R55 - Syncope and collapse (2) Vertigo Code(s): R42 - DIZZINESS AND GIDDINESS (3) Atrial fibrillation Code(s): I48.91 - UNSPECIFIED ATRIAL FIBRILLATION Assessment/Plan Continue AC MRI brain no Elio Fall precautions
[2020-04-18] MEDS ORDERED: PEG 3350/NA SULF BICARB CL/KCL 4000 ML SOLN.RECON PO ONE ×2 (14:00→20:00)
--- NOTE | 2020-04-18 15:59 | ECHO ---
Name: PARESH LORI Exam:Adult Echocardiogram Study Date: 04/18/2020 01:45 PM Age: 70 yrs Height: 69 in Weight: 159 lb BSA: 1.9 m2 MMode/2D Measurements & Calculations IVSd: 0.80 cm Ao root diam: 3.3 cm LVIDd: 5.0 cm LA dimension: 4.0 cm LVIDs: 3.3 cm ACS: 1.3 cm LVPWd: 0.80 cm EDV(Teich): 119.8 ml LVOT diam: 2.3 cm ESV(Teich): 42.6 ml LAV (MOD-bp): 70.0 ml TAPSE: 1.7 cm RV S Raghav: 10.6 cm/sec Doppler Measurements & Calculations MV E max raghav: 93.3 cm/sec Ao V2 max: 122.8 cm/sec MV dec time: 0.17 sec Ao max P.0 mmHg Ao V2 mean: 81.8 cm/sec Ao mean P.1 mmHg Ao V2 VTI: 20.9 cm KADY(I,D): 3.5 cm2 KADY(V,D): 3.1 cm2 LV V1 max P.5 mmHg SV(LVOT): 73.5 ml LV V1 mean P.8 mmHg LV V1 max: 93.8 cm/sec LV V1 mean: 62.5 cm/sec LV V1 VTI: 17.8 cm TR max raghav: 197.3 cm/sec PA V2 max: 77.4 cm/sec TR max P.6 mmHg PA max P.4 mmHg PA acc slope: 695.5 cm/sec2 PA acc time: 0.09 sec Med Peak E' Raghav: 6.8 cm/sec PA pr(Accel): 37.8 mmHg Med E/e': 13.7 Lat Peak E' Raghav: 9.1 cm/sec Lat E/e': 10.3 Pulm Sys Raghav: 80.9 cm/sec Procedure A complete two-dimensional transthoracic echocardiogram was performed (2D, M-mode, Doppler and color flow Doppler). Left Ventricle The left ventricular size, thickness and function are normal. Ejection Fraction = 60-65%. The left ve ntricular wall motion is normal. Right Ventricle The right ventricle is normal in size and function. Atria Normal left and right atrial size and function. Mitral Valve There is trace mitral regurgitation. Tricuspid Valve No tricuspid regurgitation. There was insufficient TR detected to calculate RV systolic pressure. Aortic Valve No hemodynamically significant valvular aortic stenosis. No aortic regurgitation is present. Pulmonic Valve There is no pulmonic valvular regurgitation. Great Vessels The aortic root is normal size. Pericardium/Pleura There is no pericardial effusion. Interpretation Summary The left ventricular size, thickness and function are normal The right ventricle is normal in size and function. There is trace mitral regurgitation. MD Marko Hilton 04/18/2020 03:58 PM
--- NOTE | 2020-04-18 17:13 | PN ---
Progress Note (short form) - Note Progress Note: s: no cp sob palps dizzy Current Medications Generic Name Dose Route Start Last Admin Trade Name Brownq PRN Reason Stop Dose Admin Amino Acids 30 ml 04/18/20 17:30 Prosource No Carb Liquid Pkt PO BID@0800,1730 NIALL Apixaban 5 mg 04/17/20 22:00 04/18/20 10:10 Eliquis - PO 5 mg BID NIALL Administration Atorvastatin Calcium 40 mg 04/16/20 22:00 04/17/20 21:46 Lipitor - PO 40 mg HS NIALL Administration Potassium Chloride/Dextrose/Sod Cl 20 meq in 1,000 mls @ 75 mls/hr 04/16/20 16:45 04/18/20 06:18 D5-1/2ns+20 Meq Kcl - IV 75 mls/hr ASDIR NIALL Administration Pantoprazole Sodium 80 mg/ 100 mls @ 10 mls/hr 04/16/20 16:45 04/18/20 10:10 Sodium Chloride IVPB 04/19/20 16:41 10 mls/hr Q10H NIALL Administration 8 MG/HR Metoprolol Succinate 12.5 mg 04/17/20 10:00 04/18/20 10:09 Toprol Xl - PO 12.5 mg DAILY NIALL Administration Polyethylene Glycol/Electrolytes 2,000 ml 04/18/20 20:00 Golytely Solution - PO 04/18/20 20:01 ONCE ONE Vital Signs Period Temp Pulse Resp BP Sys/Palomares Pulse Ox Last 24 Hr 97.7 F-98.3 F 78-100 20-22 96-126/64-92 97-98 Constitutional: Yes: No Distress, Calm Eyes: Yes: Conjunctiva Clear Respiratory: Yes: Regular, CTA Bilaterally Gastrointestinal: Yes: Normal Bowel Sounds, Soft Cardiovascular: Yes: Regular Rate and Rhythm JVD: No Heart Sounds: Yes: S1, S2 Musculoskeletal: No: Back Pain Extremities: No: Cold Edema: No Integumentary: No: Jaundice Neurological: Yes: Alert, Oriented Psychiatric: No: Agitated CBC, BMP 04/18/20 05:57 04/18/20 05:57 Assessment/Plan EKG: afib, no ischemic changes CXR: no acute process tele: afib, rate controlled echo 04/2020: nl lv/rv, no sig valve path 70M h/o HTN, HLD, CHF, HLD, afib on eliquis, COVID-19 infection p/w dizziness, fall fall, dizziness - denies loss of consciousness - dizziness history more likely vertigo - trop neg x 3, EKG no ischemic changes, unlikely acs - tele benign - echo unremarkable anemia - GI consulted-->ok to continue AC for now -no cardiac contraindications to EGD/FOC. afib - on eliquis - cont metoprolol, rate controlled CVA - cont statin chronic diastolic CHF: - echo unremarkable here - appears euvolemic
[2020-04-18] MEDS: AMINO ACIDS/PROTEIN HYDROLYS 30 ML LIQUID.PKT PO SCH (18:05)
[2020-04-18] MEDS: ATORVASTATIN CA 40 MG TABLET (FP) PO SCH (22:01)
[2020-04-19] MEDS: PANTOPRAZOLE SODIUM 80 MG in SODIUM CHLORIDE 100 ML IVPB SCH (02:10)
--- NOTE | 2020-04-19 06:09 | PN ---
Progress Note, Physician Chief Complaint: seen and examined in Endo D/W Dr Bran: poor prep, no bleeding seen Vitals stable. History of Present Illness: AF on Eliquis Anemia Fall Prior COVID + November TELE: AF SH: nonsmoker - Current Medication List Current Medications: Active Medications Amino Acids (Prosource No Carb Liquid Pkt) 30 ml PO BID@0800,1730 [facility] Last Admin: 04/18/20 18:05 Dose: 30 ml Documented by: Apixaban (Eliquis -) 5 mg PO BID [facility] Last Admin: 04/18/20 22:01 Dose: 5 mg Documented by: Atorvastatin Calcium (Lipitor -) 40 mg PO HS [facility] Last Admin: 04/18/20 22:01 Dose: 40 mg Documented by: Potassium Chloride/Dextrose/Sod Cl (D5-1/2ns+20 Meq Kcl -) 20 meq in 1,000 mls @ 75 mls/hr IV ASDIR [facility] Last Admin: 04/18/20 22:26 Dose: 75 mls/hr Documented by: Pantoprazole Sodium 80 mg/ (Sodium Chloride) 100 mls @ 10 mls/hr IVPB Q10H [facility] Stop: 04/19/20 16:41 Last Admin: 04/19/20 02:10 Dose: 10 mls/hr Documented by: Metoprolol Succinate (Toprol Xl -) 12.5 mg PO DAILY [facility] Last Admin: 04/18/20 10:09 Dose: 12.5 mg Documented by: - Objective Vital Signs: Vital Signs Temperature 98.1 F 04/19/20 05:47 Pulse Rate 86 04/19/20 05:47 Respiratory Rate 20 04/19/20 05:47 Blood Pressure 104/58 L 04/19/20 05:47 O2 Sat by Pulse Oximetry (%) 96 04/18/20 22:00 Constitutional: Yes: No Distress Cardiovascular: Yes: Regular Rate and Rhythm Respiratory: Yes: CTA Bilaterally (no rales or wheezing) Gastrointestinal: Yes: Soft (nt) Edema: No Labs: CBC, BMP 04/18/20 05:57 04/18/20 05:57 INR, PTT INR 1.75 (0.83-1.09) H 04/16/20 12:15 Laboratory Tests 04/16/20 04/16/20 04/16/20 12:15 14:00 14:00 WBC Hgb 7.3 L Plt Count Sodium Potassium Creatinine Stool Occult Blood Negative COVID-19 (ALONDRA) Not detected 04/17/20 04/18/20 04/18/20 06:26 05:57 05:57 WBC 9.2 Hgb 8.4 L 10.1 L Plt Count 286 Sodium 142 Potassium 4.2 Creatinine 0.7 Stool Occult Blood COVID-19 (ALONDRA) - ....Imaging EKG: Image Reviewed Assessment/Plan Assessment/Plan echo 04/2020: nl lv/rv, no sig valve path 70M h/o HTN, HLD, CHF, HLD, afib on eliquis, COVID-19 infection p/w dizziness, fall, anemia fall, dizziness: - denies loss of consciousness - dizziness history more likely vertigo - trop neg x 3, EKG no ischemic changes, unlikely acs - tele benign - echo unremarkable anemia: -no bleed seen on EGD/colon this AM, d/w Dr. Bran. afib: - on eliquis - cont metoprolol, rate controlled CVA: - cont statin chronic diastolic CHF: - echo unremarkable here - appears euvolemic
--- NOTE | 2020-04-19 07:59 | PN ---
Progress Note, Physician History of Present Illness: pulmonary alert,comfortable,-sob,-cough.-dizziness - Current Medication List Current Medications: Active Medications Amino Acids (Prosource No Carb Liquid Pkt) 30 ml PO BID@0800,1730 [facility] Last Admin: 04/18/20 18:05 Dose: 30 ml Documented by: Apixaban (Eliquis -) 5 mg PO BID [facility] Last Admin: 04/18/20 22:01 Dose: 5 mg Documented by: Atorvastatin Calcium (Lipitor -) 40 mg PO HS [facility] Last Admin: 04/18/20 22:01 Dose: 40 mg Documented by: Potassium Chloride/Dextrose/Sod Cl (D5-1/2ns+20 Meq Kcl -) 20 meq in 1,000 mls @ 75 mls/hr IV ASDIR [facility] Last Admin: 04/18/20 22:26 Dose: 75 mls/hr Documented by: Pantoprazole Sodium 80 mg/ (Sodium Chloride) 100 mls @ 10 mls/hr IVPB Q10H [facility] Stop: 04/19/20 16:41 Last Admin: 04/19/20 02:10 Dose: 10 mls/hr Documented by: Metoprolol Succinate (Toprol Xl -) 12.5 mg PO DAILY [facility] Last Admin: 04/18/20 10:09 Dose: 12.5 mg Documented by: - Objective Vital Signs: Vital Signs Temperature 98.1 F 04/19/20 05:47 Pulse Rate 86 04/19/20 05:47 Respiratory Rate 20 04/19/20 05:47 Blood Pressure 104/58 L 04/19/20 05:47 O2 Sat by Pulse Oximetry (%) 96 04/18/20 22:00 Constitutional: Yes: Well Nourished, Calm Eyes: Yes: WNL HENT: Yes: WNL Neck: Yes: WNL Cardiovascular: Yes: Pulse Irregular, S1, S2 Respiratory: Yes: CTA Bilaterally Gastrointestinal: Yes: Normal Bowel Sounds, Soft Extremities: Yes: WNL Edema: No Labs: CBC, BMP 04/18/20 05:57 04/18/20 05:57 INR, PTT INR 1.75 (0.83-1.09) H 04/16/20 12:15 Problem List - Problems (1) Syncope Code(s): R55 - SYNCOPE AND COLLAPSE Qualifiers: Syncope type: unspecified Qualified Code(s): R55 - Syncope and collapse (2) Vertigo Code(s): R42 - DIZZINESS AND GIDDINESS (3) Afib Code(s): I48.91 - UNSPECIFIED ATRIAL FIBRILLATION (4) Atrial fibrillation Code(s): I48.91 - UNSPECIFIED ATRIAL FIBRILLATION (5) CVA (cerebral vascular accident) Code(s): I63.9 - CEREBRAL INFARCTION, UNSPECIFIED (6) Hyperlipidemia Code(s): E78.5 - HYPERLIPIDEMIA, UNSPECIFIED (7) Hypertension Code(s): I10 - ESSENTIAL (PRIMARY) HYPERTENSION Assessment/Plan IMP H/O RESPIRATORY FAILURE S/P COVID PNEUMONIA H/O CVA S/P MECHANICAL FALL DIZZINESS CHF AFIB HTN HLD ANEMIA PLAN O2 NEEDED AC MONITOR LYTES,H+H DR GROVER Problem List - Problems (1) Syncope Code(s): R55 - SYNCOPE AND COLLAPSE Qualifiers: Syncope type: unspecified Qualified Code(s): R55 - Syncope and collapse (2) Vertigo Code(s): R42 - DIZZINESS AND GIDDINESS (3) Afib Code(s): I48.91 - UNSPECIFIED ATRIAL FIBRILLATION (4) Atrial fibrillation Code(s): I48.91 - UNSPECIFIED ATRIAL FIBRILLATION (5) CVA (cerebral vascular accident) Code(s): I63.9 - CEREBRAL INFARCTION, UNSPECIFIED (6) Hyperlipidemia Code(s): E78.5 - HYPERLIPIDEMIA, UNSPECIFIED (7) Hypertension Code(s): I10 - ESSENTIAL (PRIMARY) HYPERTENSION
[2020-04-19] MEDS: metoPROLOL SUCCINATE 25 MG TAB.SR.24H (FP) PO SCH (10:44)
[2020-04-19] MEDS: APIXABAN 5 MG TABLET PO SCH (10:44)
[2020-04-19] MEDS: AMINO ACIDS/PROTEIN HYDROLYS 30 ML LIQUID.PKT PO SCH (10:45)
[2020-04-19 14:42] LABS: BASO % 0.4 % (0-2.0); EOS % 2.3 % (0-4.5); HEMATOCRIT 30.9 % (35.4-49); LYMPH % 11.5 % (8-40); MCH 27.9 pg (25.7-33.7); MCHC 32.3 g/dl (32.0-35.9); MEAN CELL VOLUME 86.3 fl (80-96); MEAN PLT VOLUME 7.4 fl (7.5-11.1); MONO % 9.6 % (3.8-10.2); NEUT % 76.2 % (42.8-82.8); PLATELET COUNT 316 K/MM3 (134-434); RBC 3.59 M/mm3 (4.00-5.60); RDW 17.8 % (11.9-15.9)
[2020-04-19 15:44] VITALS: BP 105/61; PULSE 90; TEMP 98.5
--- NOTE | 2020-04-19 16:34 | DS ---
Physical Examination Vital Signs: Vital Signs Temperature 98.5 F 04/19/20 14:10 Pulse Rate 90 04/19/20 14:10 Respiratory Rate 20 04/19/20 14:10 Blood Pressure 105/61 04/19/20 14:10 O2 Sat by Pulse Oximetry (%) 99 04/19/20 08:50 Labs: CBC, BMP 04/19/20 13:48 04/18/20 05:57 Discharge Summary Problems reviewed: Yes Reason For Visit: ANEMIA SYNCOPE VERTIGO Current Active Problems Anemia (Acute) Syncope (Acute) Vertigo (Acute) Condition: Stable - Instructions Referrals: Alcon Butt MD [Primary Care Provider] - 1 Week Olga Bey MD [Staff Physician] - Disposition: HOME - Home Medications Comprehensive Discharge Medication List: Ambulatory Orders Apixaban [Eliquis] 5 mg PO BID 09/15/16 Atorvastatin Ca [Lipitor] 40 mg PO HS tablet 12/07/19 Multivitamin 1 tab PO DAILY 03/20/20 Vitamin C - 1 tab PO DAILY 03/20/20 Zinc 220 mg PO DAILY 03/20/20 Bisacodyl [Bisacodyl -] 10 mg PO DAILY 04/10/20 Metoprolol Succinate 12.5 mg PO DAILY 04/10/20 Polyethylene Glycol 3350 [Miralax 119 gm Btl -] 17 gm PO DAILY PRN 04/10/20 Sennosides [Senna -] 17.2 mg PO DAILY 04/10/20 Cholecalciferol (Vitamin D3) [Vitamin D-400] 400 unit PO BID 30 Days #1 tablet 04/12/20 Amino Acids/Protein Hydrolys [Prosource No Carb Liquid Pkt] 30 ml PO BID@0800,1730 packet 04/19/20 Iron Polysaccharides [Niferex-150 -] 150 mg PO DAILY #30 capsule 04/19/20 Pantoprazole Sodium [Protonix -] 40 mg PO BID #60 tablet.ec 04/19/20
[2020-04-19 16:57] LABS: EOS % 2.9 % (0-4.5); HEMATOCRIT 29.9 % (35.4-49); HEMOGLOBIN 9.4 GM/dL (11.7-16.9); MCH 26.9 pg (25.7-33.7); MCHC 31.5 g/dl (32.0-35.9); MEAN CELL VOLUME 85.5 fl (80-96); MEAN PLT VOLUME 7.5 fl (7.5-11.1); MONO % 8.3 % (3.8-10.2); NEUT % 71.8 % (42.8-82.8); PLATELET COUNT 331 K/MM3 (134-434); RBC 3.49 M/mm3 (4.00-5.60); RDW 17.7 % (11.9-15.9); WHITE BLOOD COUNT 11.4 K/mm3 (4.0-10.0)
== END 2020-04-19 18:01 | disposition home or self-care (01) | DRG 149 ==
LOC: JER 10:25 → INTOOBSV 15:43 → JERBED 15:43 → OBSVTOIN 16:39 → J4W 04-17 10:07
PROVIDERS: ADMIT Family Medicine; ATTEND Family Medicine
PROC: 30233N1 Transfusion of Nonautologous Red Blood Cells into Peripheral Vein, Percutaneous Approach (ICD-10-PCS; 2020-04-17)
PROC: 0DJD8ZZ Inspection of Lower Intestinal Tract, Via Natural or Artificial Opening Endoscopic (ICD-10-PCS; 2020-04-19)
PROC: 0DJ08ZZ Inspection of Upper Intestinal Tract, Via Natural or Artificial Opening Endoscopic (ICD-10-PCS; principal; 2020-04-19 07:30)
DX: R42 Dizziness and giddiness (principal); I69.354 Hemiplegia and hemiparesis following cerebral infarction affecting left non-dominant side; I50.32 Chronic diastolic (congestive) heart failure; D64.9 Anemia, unspecified; E78.5 Hyperlipidemia, unspecified; I48.91 Unspecified atrial fibrillation; E78.00 Pure hypercholesterolemia, unspecified; W18.39XA Other fall on same level, initial encounter; Y92.89 Other specified places as the place of occurrence of the external cause; I25.10 Atherosclerotic heart disease of native coronary artery without angina pectoris; M19.90 Unspecified osteoarthritis, unspecified site; I11.0 Hypertensive heart disease with heart failure
CPT/HCPCS: 36415; 36430; 70450-TC; 71045-TC-FY; 80053; 82272; 82550; 82962; 83735; 84443; 84484; 85025; 85610; 85730; 86850; 86900; 86901; 86922; 93005; 93010; 93306-TC; 99285-25; G0378; P9058; U0003

== ENCOUNTER 2020-07-24 06:41 | Day surgery (SDC) | payer OTHER, MEDICARE ==
[2020-07-23 15:42] VITALS: BMI 26.6
[2020-07-24] MEDS: CIPROFLOXACIN 0.3% EYE DROPS 5 ML BOTTLE ONE ×3 (07:15→07:25)
[2020-07-24] MEDS: TROPICAMIDE 1% OPHTH SOLN 15 ML BOTTLE ONE ×3 (07:15→07:25)
[2020-07-24] MEDS: CYCLOPENTOLATE 2% OPHTH SOLN 2 ML BOTTLE ONE ×3 (07:15→07:25)
[2020-07-24] MEDS: PHENYLEPHRINE 2.5% OPHTH SOLN 15 ML BOTTLE ONE ×3 (07:15→07:25)
[2020-07-24] MEDS ORDERED: EPINEPHrine/PF 1 MG/1 ML (1:1,000) AMPULE ONE (07:25)
[2020-07-24] MEDS ORDERED: LIDOCAINE 1% P/F 10 MG/ML VIAL ONE (07:25)
[2020-07-24] MEDS ORDERED: BSS (NA/CA/MG/K) BALANCED SALT SOLUTION OPHTH SOLN 15 ML BOTTLE ONE (07:26)
[2020-07-24] MEDS ORDERED: TETRACAINE 0.5% OPHTH SOLN 2 ML BOTTLE ONE (07:26)
[2020-07-24] MEDS ORDERED: CARBACHOL 0.01% INTRA-OCULAR 1.5 ML VIAL ONE (07:26)
[2020-07-24] MEDS ORDERED: NEO/POLYMYX B SULF/DEXAMETH OPHTHALMIC 5ML BOTTLE ONE (07:27)
[2020-07-24] MEDS ORDERED: MIDAZOLAM HCL 2 MG/2 ML SINGLE DOSE VIAL ONE (08:05)
[2020-07-24] MEDS ORDERED: SUCCINYLCHOLINE CHLORIDE 200 MG/10 ML SYRINGE ONE (08:06)
[2020-07-24] MEDS ORDERED: PROPOFOL 20 ML ONE (08:06)
[2020-07-24 08:48] VITALS: PULSE 80; TEMP 98.1
[2020-07-24 09:18] VITALS: BP 112/77
== END 2020-07-24 09:15 | disposition home or self-care (01) ==
LOC: FASU 06:41 → MERGE 06:41 → FASU 09:15
PROVIDERS: ATTEND Ophthalmology
PROC: 08RJ3JZ Replacement of Right Lens with Synthetic Substitute, Percutaneous Approach (ICD-10-PCS; principal; 2020-07-24 08:20)
DX: H26.9 Unspecified cataract (principal)

== ENCOUNTER 2020-10-16 07:40 | Day surgery (SDC) | payer OTHER, MEDICARE ==
[2020-10-11 13:26] VITALS: BMI 28.8
[2020-10-16] MEDS: CYCLOPENTOLATE 2% OPHTH SOLN 2 ML BOTTLE ONE ×3 (08:10→08:20)
[2020-10-16] MEDS ORDERED: PHENYLEPHRINE 2.5% OPHTH SOLN 15 ML BOTTLE OS ONE ×3 (08:10→08:20)
[2020-10-16] MEDS: TROPICAMIDE 1% OPHTH SOLN 15 ML BOTTLE ONE ×3 (08:10→08:20)
[2020-10-16] MEDS: CIPROFLOXACIN HCL 0.3% OPHTH 2.5ML BOTTLE ONE ×3 (08:10→08:20)
[2020-10-16] MEDS ORDERED: LIDOCAINE 1% P/F 10 MG/ML VIAL ONE (09:18)
[2020-10-16] MEDS ORDERED: TETRACAINE 0.5% OPHTH SOLN 2 ML BOTTLE ONE (09:19)
[2020-10-16] MEDS ORDERED: BSS (NA/CA/MG/K) BALANCED SALT SOLUTION OPHTH SOLN 15 ML BOTTLE ONE (09:19)
[2020-10-16] MEDS ORDERED: CARBACHOL 0.01% INTRA-OCULAR 1.5 ML VIAL ONE (09:19)
[2020-10-16] MEDS ORDERED: NEO/POLYMYX B SULF/DEXAMETH OPHTHALMIC 5ML BOTTLE ONE (09:19)
[2020-10-16] MEDS ORDERED: MIDAZOLAM HCL 2 MG/2 ML SINGLE DOSE VIAL ONE (09:28)
[2020-10-16 10:09] VITALS: TEMP 98.1
[2020-10-16 10:52] VITALS: BP 115/65; PULSE 63
== END 2020-10-16 10:25 | disposition home or self-care (01) ==
LOC: FASU 07:40
PROVIDERS: ATTEND Ophthalmology
PROC: 08RK3JZ Replacement of Left Lens with Synthetic Substitute, Percutaneous Approach (ICD-10-PCS; principal; 2020-10-16 09:31)
DX: H26.8 Other specified cataract (principal)

== ENCOUNTER 2021-10-20 04:36 | Emergency (ER) | payer OTHER, MEDICARE ==
[2021-10-20 04:55] VITALS: BMI 30.4
[2021-10-20] MEDS ORDERED: SODIUM CHLORIDE 1,000 ML IV SCH (05:15)
[2021-10-20 05:26] LABS: BASO % 0.6 % (0-2.0); EOS % 2.8 % (0-4.5); HEMATOCRIT 50.1 % (35.4-49); HEMOGLOBIN 16.3 GM/dL (11.7-16.9); MCH 29.2 pg (25.7-33.7); MCHC 32.6 g/dl (32.0-35.9); MEAN CELL VOLUME 89.7 fl (80-96); MEAN PLT VOLUME 8.4 fl (7.5-11.1); MONO % 8.9 % (3.8-10.2); NEUT % 55.7 % (42.8-82.8); PLATELET COUNT 167 10^3/uL (134-434); RBC 5.59 M/mm3 (4.00-5.60); RDW 13.7 % (11.9-15.9); WHITE BLOOD COUNT 9.4 K/mm3 (4.0-10.0)
[2021-10-20 05:45] LABS: CALCIUM 8.6 mg/dL (8.5-10.1)
[2021-10-20 05:46] LABS: BLOOD UREA NITROGEN 16.7 mg/dL (7-18)
[2021-10-20 05:49] LABS: CREATININE 1.1 mg/dL (0.55-1.3)
[2021-10-20 05:50] LABS: TOT PROT 7.4 g/dl (6.4-8.2)
[2021-10-20 05:51] LABS: BILIRUBIN,TOTAL 0.4 mg/dL (0.2-1)
[2021-10-20 05:59] LABS: INR 1.46 (0.83-1.09); PROTHROMBIN TIME (PATIENT) 16.8 SEC (9.7-13.0)
[2021-10-20 06:01] LABS: ACTIVATED PTT 37.5 SECONDS (25.2-36.5)
[2021-10-20 08:17] LABS: URINE APPEARANCE CLEAR; URINE BILIRUBIN NEGATIVE (NEGATIVE); URINE COLOR YELLOW; URINE GLUCOSE (UA) NEGATIVE (NEGATIVE); URINE KETONE NEGATIVE (NEGATIVE); URINE LEUK ESTERASE NEGATIVE (NEGATIVE); URINE NITRITE NEGATIVE (NEGATIVE); URINE PROTEIN NEGATIVE (NEGATIVE); URINE UROBILINOGEN 0.2 mg/dL (0.2-1.0)
[2021-10-20 11:58] VITALS: BP 131/90; PULSE 75; TEMP 98.5
== END 2021-10-20 12:12 | disposition home or self-care (01) ==
LOC: JER 04:36
DX: R42 Dizziness and giddiness (principal)
CPT/HCPCS: 36415; 70450-TC; 70551-TC; 71045-TC-FY; 80053; 80061; 81003; 83036; 84484; 85025; 85610; 85730; 86850; 86900; 86901; 93005; 93010; 99285-25

== ENCOUNTER 2021-12-10 17:17 | Emergency (ER) | payer OTHER, MEDICARE ==
[2021-12-10 17:32] VITALS: TEMP 97.8; BMI 30.1
[2021-12-10 19:09] LABS: BASO % 0.6 % (0-2.0); EOS % 3.1 % (0-4.5); HEMATOCRIT 49.1 % (35.4-49); HEMOGLOBIN 16.6 GM/dL (11.7-16.9); LYMPH % 28.4 % (8-40); MCH 29.7 pg (25.7-33.7); MCHC 33.7 g/dl (32.0-35.9); MEAN PLT VOLUME 8.2 fl (7.5-11.1); MONO % 9.3 % (3.8-10.2); NEUT % 58.6 % (42.8-82.8); PLATELET COUNT 170 10^3/uL (134-434); RBC 5.58 M/mm3 (4.00-5.60); RDW 13.5 % (11.9-15.9); WHITE BLOOD COUNT 8.3 K/mm3 (4.0-10.0)
[2021-12-10 19:25] LABS: CALCIUM 9.4 mg/dL (8.5-10.1)
[2021-12-10 19:27] LABS: ALBUMIN 4.4 g/dl (3.4-5.0); BLOOD UREA NITROGEN 16.7 mg/dL (7-18)
[2021-12-10 19:31] LABS: BILIRUBIN,TOTAL 0.4 mg/dL (0.2-1); TOT PROT 8.3 g/dl (6.4-8.2)
[2021-12-10 22:12] VITALS: BP 114/84; PULSE 76
== END 2021-12-10 22:17 | disposition home or self-care (01) ==
LOC: JER 17:17
DX: I48.91 Unspecified atrial fibrillation (principal); R53.81 Other malaise
CPT/HCPCS: 36415; 71045-TC-FY; 80053; 82962; 84484; 85025; 93005; 93010; 99285-25; C9803-CS; U0003; U0005